=== PATIENT | female | born 1935 | race Caucasian/White ===

== ENCOUNTER 2016-09-27 12:59 | Emergency (ER) | payer MEDICARE ==
[2016-09-27 13:41] LABS: BASOPHIL 0.2 % (0-2); EOSINOPHIL 0.7 % (0-7); HCT 39.3 % (37.0-47.0); HGB 13.4 g/dl (12.5-16.0); LYMPHOCYTE 53.3 % (15-48); MCH 29.6 pg (25.0-31.0); MCHC 34.1 g/dL (32.0-36.0); MCV 86.8 fL (78.0-100.0); MONOCYTE 10.8 % (0-12); MPV 9.4 fL (6.0-9.5); PLT 144 K/uL (150-400); RBC 4.53 M/uL (4.20-5.40); RDW 13.7 % (11.5-14.0); WBC 4.2 K/uL (4.0-10.5)
[2016-09-27 14:00] LABS: ALBUMIN 4.3 g/dL (3.4-4.8); BILIRUBIN - TOTAL 0.7 mg/dL (0.1-1.0); CREATININE 0.9 mg/dL (0.5-1.0); GLOBULIN (CALCULATION) 2.6 g/dL (2.2-4.2); POTASSIUM 4.2 mmol/L (3.5-5.1); TOTAL PROTEIN 6.9 g/dL (6.4-8.3)
== END 2016-09-27 14:30 | disposition home or self-care (01) ==
LOC: FER 12:59
PROVIDERS: Nurse Practitioner
DX: J10.1 Influenza due to other identified influenza virus with other respiratory manifestations (principal); J44.9 Chronic obstructive pulmonary disease, unspecified; N19 Unspecified kidney failure; Z88.5 Allergy status to narcotic agent; Z79.899 Other long term (current) drug therapy
CPT/HCPCS: 36415; 71020; 80053; 85025; 87804; 87899; 99283

== ENCOUNTER 2016-09-30 21:56 | Emergency (ER) | payer MEDICARE ==
[2016-10-01 00:26] LABS: BASOPHIL 0.3 % (0-2); EOSINOPHIL 0.9 % (0-7); HCT 39.1 % (37.0-47.0); HGB 13.4 g/dl (12.5-16.0); LYMPHOCYTE 48.7 % (15-48); MCH 29.7 pg (25.0-31.0); MCHC 34.3 g/dL (32.0-36.0); MCV 86.7 fL (78.0-100.0); MONOCYTE 13.2 % (0-12); MPV 9.9 fL (6.0-9.5); NEUTROPHIL 36.9 % (41-80); PLT 178 K/uL (150-400); RBC 4.51 M/uL (4.20-5.40); RDW 13.5 % (11.5-14.0)
[2016-10-01 00:46] LABS: BILIRUBIN - TOTAL 0.9 mg/dL (0.1-1.0); CREATININE 0.9 mg/dL (0.5-1.0); GLOBULIN (CALCULATION) 2.8 g/dL (2.2-4.2); TOTAL PROTEIN 6.8 g/dL (6.4-8.3)
== END 2016-10-01 01:36 | disposition home or self-care (01) ==
LOC: FER 21:56
PROVIDERS: Emergency Medicine
DX: R06.02 Shortness of breath (principal); R05 Cough; E03.9 Hypothyroidism, unspecified; Z98.890 Other specified postprocedural states
CPT/HCPCS: 36415; 36600; 71010; 80053; 82803; 84484; 85025; 93005